=== PATIENT | male | born 1955 | race African-American/Black ===

== ENCOUNTER 2021-08-02 19:44 | Emergency (ER) | payer OTHER, MEDICAID ==
[~2021-08-02] VITALS: Ht 193 cm; Wt 80.0 kg
[2021-08-03 00:47] LABS: BASOPHILS % 0.4 % (0.0-2.0); EOSINOPHILS % 1.6 % (0.0-5.0); HEMATOCRIT. 40.9 % (42.0-52.0); LYMPHOCYTES % 28.3 % (20.0-50.0); MEAN CORPUSCULAR HEMOGLOBIN 28.4 pg (28.0-32.0); MEAN CORPUSCULAR VOLUME 89.8 fL (80.0-94.0); MEAN PLATELET VOLUME 7.8 fl (7.4-10.4); MONOCYTES % 8.7 % (2.0-8.0); PLATELET 256 x1000/uL (130-400); RED BLOOD CELL COUNT 4.55 mill/uL (4.7-6.1)
[2021-08-03 00:55] LABS: CHLORIDE 105 mEq/L (98-107)
[2021-08-03 00:59] LABS: ETHANOL BLOOD < 10 mg/dL
[2021-08-03 10:50] VITALS: BP 115/73
== END 2021-08-03 10:57 | disposition home or self-care (01) ==
LOC: ER 19:44
DX: R45.851 Suicidal ideations (principal); Z20.822 Contact with and (suspected) exposure to COVID-19
CPT/HCPCS: 36415; 80053; 80307; 80320; 80329; 85025; 87426; 93005; 99285; C9803; U0003; U0005; G0480

== ENCOUNTER 2022-10-25 12:51 | Emergency (ER) | payer OTHER, MEDICAID ==
[~2022-10-25] VITALS: Ht 170.2 cm; Wt 75.0 kg
[~2022-10-25 12:51] MED LIST: KEPP500 MT; PHEN100C4 MT
[2022-10-25 13:43] VITALS: BP 121/75
[2022-10-25] MEDS ORDERED: KEPP500 PO ×2 (14:03→14:28)
[2022-10-25] MEDS ORDERED: BICT1TAB PO ×2 (14:03→14:28)
[2022-10-25] MEDS ORDERED: LEVETIRACETAM 500MG TABLET PO ONE (14:45)
== END 2022-10-25 14:59 | disposition home or self-care (01) ==
LOC: ER 13:07
DX: R68.89 Other general symptoms and signs (principal); Z76.0 Encounter for issue of repeat prescription; F32.9 Major depressive disorder, single episode, unspecified; G40.909 Epilepsy, unspecified, not intractable, without status epilepticus
CPT/HCPCS: 99283